=== PATIENT | female | born 1995 | race Two or more races ===

== ENCOUNTER 2018-09-02 00:24 | Emergency (ER) | payer OTHER ==
[2018-09-02] MEDS ORDERED: LORazepam INJ* 2 MG/ML 1 ML VIAL IV PUSH ONE (00:56)
[2018-09-02] MEDS ORDERED: Ketorolac INJ* 30 MG/ML 1 ML VIAL IV PUSH PRN (00:56)
--- NOTE | 2018-09-02 00:59 | ED ---
Back Pain - HPI Summary HPI Summary: A 23 y/o female presents to the ED, accompanied by her bosallison, c/o back pain since 18:00 09/01/2018. She rates her pain as 5/10. She denies any urinary or bowel symptoms. Her boss claims that her leg was weird but the patient denies trouble walking earlier in the day. She states that now she cannot move much. She has no history of trauma. She last urinated at 00:10 09/02/2018. - History of Current Complaint Chief Complaint: EDBackInjuryPain Stated Complaint: BACK PAIN Time Seen by Provider: 09/02/18 00:49 Hx Obtained From: Patient, Other: - boss Hx Last Menstrual Period: 07/30/14 Onset/Duration: Sudden Onset, Lasting Hours, Still Present Onset/Duration: Started Hours Ago, Still Present Timing: Constant Severity Initially: Moderate Severity Currently: Moderate Pain Intensity: 5 Pain Scale Used: 0-10 Numeric - Allergies/Home Medications Allergies/Adverse Reactions: Allergies Allergy/AdvReac Type Severity Reaction Status Date / Time No Known Allergies Allergy Verified 09/02/18 00:30 Home Medications: Home Medications buPROPion HCl [Bupropion HCl Sr] 200 mg PO DAILY 09/02/18 [History Confirmed ] PMH/Surg Hx/FS Hx/Imm Hx Endocrine/Hematology History: Denies: Hx Diabetes, Hx Thyroid Disease Cardiovascular History: Denies: Hx Hypertension Respiratory History: Denies: Hx Asthma, Hx Chronic Obstructive Pulmonary Disease (COPD) GI History: Denies: Hx Ulcer Infectious Disease History: No Infectious Disease History: Denies: Hx Clostridium Difficile, Hx Hepatitis, Hx Human Immunodeficiency Virus (HIV), Hx of Known/Suspected MRSA, Hx Shingles, Hx Tuberculosis, Hx Known/ Suspected VRE, Hx Known/Suspected VRSA, History Other Infectious Disease, Traveled Outside the [place] in Last 30 Days - Family History Known Family History: Positive: Hypertension, Diabetes - Social History Alcohol Use: Occasionally Substance Use Type: Reports: None Smoking Status (MU): Never Smoked Tobacco Review of Systems Gastrointestinal: Negative - bowel symptoms Genitourinary: Negative - urinary symptoms Positive: Myalgia - back pain All Other Systems Reviewed And Are Negative: Yes Physical Exam - Summary Physical Exam Summary: VITAL SIGNS: Reviewed. GENERAL: Patient is a well-developed and nourished FEMALE who is lying comfortable in the stretcher. Patient is not in any acute respiratory distress. HEAD AND FACE: No signs of trauma. No ecchymosis, hematomas or skull depressions. No sinus tenderness. EYES: PERRLA, EOMI x 2, No injected conjunctiva, no nystagmus. EARS: Hearing grossly intact. Ear canals and tympanic membranes are within normal limits. MOUTH: Oropharynx within normal limits. NECK: Supple, trachea is midline, no adenopathy, no JVD, no carotid bruit, no c- spine tenderness, neck with full ROM. CHEST: Symmetric, no tenderness at palpation LUNGS: Clear to auscultation bilaterally. No wheezing or crackles. CVS: Regular rate and rhythm, S1 and S2 present, no murmurs or gallops appreciated. ABDOMEN: Soft, non-tender. No signs of distention. No rebound no guarding, and no masses palpated. Bowel sounds are normal. EXTREMITIES: Bilateral straight leg test is positive at 10 degrees. Tenderness over lumbar spine. NEURO: Alert and oriented x 3. No acute neurological deficits. Speech is normal and follows commands. SKIN: Dry and warm Triage Information Reviewed: Yes Vital Signs On Initial Exam: Initial Vitals Temp Pulse Resp BP Pulse Ox 98.1 F 92 16 139/87 97 09/02/18 00:26 09/02/18 00:26 09/02/18 00:26 09/02/18 00:26 09/02/18 00:26 Vital Signs Reviewed: Yes Diagnostics - Vital Signs Vital Signs Temp Pulse Resp BP Pulse Ox 09/02/18 00:26 98.1 F 92 16 139/87 97 - Laboratory Lab Statement: Any lab studies that have been ordered have been reviewed, and results considered in the medical decision making process. Re-Evaluation - Re-Evaluation First Eval Re-Evaluation Time: 02:20 Change: Improved Comment: Pt is feeling better. Back Pain Course/Dx - Course Course Of Treatment: A 23 y/o female presents to the ED, accompanied by her boss , c/o back pain since 18:00 09/01/2018. She denies any urinary or bowel symptoms. Her boss claims that her leg was weird but the patient denies trouble walking earlier in the day. She states that now she cannot move much. She has no history of trauma. She last urinated at 00:10 09/02/2018. Her PE was remarkable with tenderness over lumbar spine. The Bilateral straight leg test is positive at 10 degrees. Her bladder scan PVR was 0. Upon re-eval she is feeling better. She will be discharged home with prescriptions for Flexeril and Motrin. Dx: lower back pain. She was instructed to follow up with her PCP in 1- 2 days and return to the ED for changing or worsening symptoms. - Diagnoses Provider Diagnoses: Lower back pain Discharge - Sign-Out/Discharge Documenting (check all that apply): Patient Departure - DC - Discharge Plan Condition: Stable Disposition: HOME Prescriptions: Cyclobenzaprine TAB* [Flexeril 10 MG TAB*] 10 mg PO TID PRN #20 tab MDD 3 PRN Reason: Spasms - Back Ibuprofen TAB* [Motrin TAB* 800 MG] 800 mg PO Q6H PRN #30 tab PRN Reason: Pain Patient Education Materials: Back Pain (ED) Forms: *School Release Referrals: [facility] [Outside] Additional Instructions: RETURN TO THE EMERGENCY DEPARTMENT FOR CHANGING OR WORSENING SYMPTOMS. FOLLOW UP WITH PCP IN 1-2 DAYS. - Attestation Statements Document Initiated by Scribe: Yes Documenting Scribe: Saleem Mcgarry Provider For Whom Scribe is Documenting (Include Credential): Shanell Hopkins MD Scribe Attestation: Saleem Escoto, scribed for Shanell Hopkins MD on 09/02/18 at 0236.
[2018-09-02 02:22] VITALS: BP 128/91
== END 2018-09-02 02:47 | disposition home or self-care (01) ==
LOC: ED 00:24
DX: M54.5 Low back pain (principal)
CPT/HCPCS: 96374; 96375; 99283; J1885; J2060